=== PATIENT | female | born 1995 | race American Indian/Alaskan Native ===

== ENCOUNTER 2020-06-08 21:31 | Inpatient (IN) | payer MEDICAID ==
[2020-06-08] MEDS ORDERED: LIDOCAINE (2%) 20 MG/1 ML VIAL 20 ML MDV INFILTRATI ONE (23:43)
[2020-06-08] MEDS ORDERED: ePHEDrine SULFATE 50 MG/1 ML INJ IV PRN (23:43)
[2020-06-08] MEDS ORDERED: MINERAL OIL 30 ML ORAL LIQD PO PRN (23:43)
[2020-06-08] MEDS ORDERED: OXYTOCIN DRIP 30 UNITS/500 ML BAG IV SCH (23:45)
[2020-06-08] MEDS ORDERED: LACTATED RINGERS 1,000 ML ONE (23:48)
[2020-06-09] MEDS: LACTATED RINGERS 1,000 ML IV SCH ×3 (00:01→22:10)
[2020-06-09 00:21] LABS: Bilirubin,Urine NEG (Negative); Blood,Urine NEG (Negative); Color,Urine Yellow (Yellow); Mucus,Urine FEW /HPF; Protein,Urine <15 mg/dL mg/dL (Negative); Urobilinogen,Urine < 2.0 mg/dL (<2.0)
[2020-06-09 00:23] LABS: Basophils % (Auto) 0.2 % (0.0-1.8); Eosinophils % (Auto) 0.6 % (0.0-4.3); Hematocrit 36.6 % (30.3-42.9); Hemoglobin 12.6 gm/dl (10.1-14.3); Lymphocytes # (Auto) 1.7 K/mm3 (1.2-5.4); Lymphocytes % (Auto) 19.3 % (13.4-35.0); Mean Corpuscular HGB Conc 34 % (30-34); Mean Corpuscular Volume 95 fl (79-97); Monocytes # (Auto) 0.9 K/mm3 (0.0-0.8); Monocytes % (Auto) 10.7 % (0.0-7.3); Platelet Count 185 K/mm3 (140-440); Red Blood Count 3.84 M/mm3 (3.65-5.03); Red Cell Distribution Width 13.8 % (13.2-15.2)
[2020-06-09 01:07] LABS: Alanine Aminotransferase 17 units/L (7-56)
[2020-06-09 01:29] LABS: Uric Acid 5.7 mg/dL (3.5-7.6)
[2020-06-09] MEDS ORDERED: DINOPROSTONE 10 MG VAG SUPP VG ONE (02:49)
--- NOTE | 2020-06-09 11:25 | History and Physical Report ---
History of Present Illness Date of examination: 06/09/20 Date of admission: 06/08/20 21:31 Chief complaint: Induction of labor History of present illness: 24 yo, G1 @ 39 wks, initiated care with [facility] at 17.2 wks gestation. Her has been complicated by late entry to [facility], +GBS status, high anxious moods, polyhydramnios (NEO-28cms), BV/mycoplasma and possible micrognathia (cell free DNA done 05/06/20). She presented to [facility] yesterday for IOL secondary to polydramnios. Reports +FM. Denies any VB or LOF. Labs: A+, antibody negative; PAP smear normal; rubella immune; VDRL non-reactive; urine culture negative; HBsAg negative; HIV negative; varicella immune; HSV-2 negative; GC/Chlamydia/Trich negative; VIt D - 22.0; MSAFP/Multiple markers negative; BUN-5; Cr-0.61; Uric acid - 3.7; LDH-153; ALT-12; AST-20; 1 hr gtt - 107; GBS positive. Past History Past Medical History: other (Vit D defiecinicy) Past Surgical History: no surgical history Family/Genetic History: hypertension Social history: single, full code. denies: smoking, alcohol abuse, prescription drug abuse, IV drug use - Obstetrical History Expected Date of Delivery: 06/16/20 Actual Gestation: 39 Week(s) 0 Day(s) : 1 Para: 0 Hx # Term Pregnancies: 0 Number of Pregnancies: 0 Spontaneous Abortions: 0 Induced : 0 Number of Living Children: 0 Medications and Allergies Allergies Allergy/AdvReac Type Severity Reaction Status Date / Time No Known Allergies Allergy Unverified 06/08/20 22:22 Home Medications Medication Instructions Recorded Confirmed Last Taken Type Labetalol 200mg TAB 200 mg PO BID 06/08/20 06/08/20 06/08/20 18:00 History Vitamin 1 tab PO DAILY 06/08/20 06/08/20 06/08/20 History Active Meds: Active Medications Ephedrine Sulfate (Ephedrine Sulfate) 10 mg IV Q2M PRN PRN Reason: Hypotension Lactated Ringer's (Lactated Ringers) 1,000 mls @ 125 mls/hr IV DIRECT VALERIE Last Admin: 06/09/20 07:16 Dose: 125 mls/hr Documented by: Oxytocin/Sodium Chloride (Pitocin/Ns 30 Unit/500ml) 30 units in 500 mls @ 40 mls/hr IV TITR VALERIE; Protocol Mineral Oil (Mineral Oil) 30 ml PO QHS PRN PRN Reason: Constipation Review of Systems All systems: negative Genitourinary: contractions (irregular) Rectal Exam: deferred - Vital Signs Vital signs: Vital Signs Pulse BP 93 H 128/72 06/08/20 22:17 06/08/20 22:17 Temp Pulse Resp BP Pulse Ox 98.2 F 76 20 131/79 94 06/09/20 07:50 06/09/20 07:11 06/09/20 07:50 06/09/20 07:11 06/09/20 03:46 - Physical Exam Breasts: Positive: deferred Cardiovascular: Regular rate Lungs: Positive: Normal air movement Abdomen: Positive: other (gravid) Genitourinary (Female): Positive: normal external genitalia, normal perenium Uterus: Positive: enlarged (S=D) Extremities: Positive: normal - Obstetrical FHR: category 1 Uterine Contraction Pattern: Irregular Uterine Contraction Intensity: Mild Results Result Diagrams: 06/08/20 23:25 06/08/20 23:25 Abnormal lab results 06/08/20 06/08/20 06/08/20 Range/Units 23:20 23:25 23:25 MCH 33 H (28-32) pg [place] % (Auto) 10.7 H (0.0-7.3) % [place] # (Auto) 0.9 H (0.0-0.8) K/mm3 Creatinine 0.5 L (0.6-1.2) mg/dL Lactate Dehydrogenase 202 H (91-180) units/L U Epithel Cells (Auto) 18.0 H (0-13.0) /HPF All other labs normal. Assessment and Plan - Patient Problems (1) Encounter for induction of labor Current Visit: Yes Status: Acute Plan to address problem: Cervidil remains in place, remove at 1600 Pain meds as desired per order Anticipate (2) Polyhydramnios affecting Current Visit: Yes Status: Acute (3) Positive GBS test Current Visit: Yes Status: Acute
[2020-06-09] MEDS ORDERED: AMPICILLIN/NS 2 GM/100 ML 2 GM/100 ML BAG IV ONE (11:32)
[2020-06-09] MEDS: AMPICILLIN/NS 1 GM/50 ML 1 GM/50 ML BAG IV SCH ×2 (16:40→20:30)
[2020-06-09] MEDS ORDERED: miSOPROStol 25 MCG TAB PO PRN (17:55)
--- NOTE | 2020-06-09 18:00 | Progress Note ---
Assessment and Plan - Patient Problems (1) Encounter for induction of labor Current Visit: Yes Status: Acute Plan to address problem: Cervidil removed around 1600 Cytotec 50mcg po q 4 hr as tolerated x 4 doses Pain meds as desired per order Anticipate (2) Polyhydramnios affecting Current Visit: Yes Status: Acute (3) Positive GBS test Current Visit: Yes Status: Acute Subjective - Subjective Date of service: 06/09/20 Principal diagnosis: IOL Interval history: 24 yo, G1 @ 39 wks, initiated care with [facility] at 17.2 wks gestation. Her has been complicated by late entry to [facility], +GBS status, high anxious moods, polyhydramnios (NEO-28cms), BV/mycoplasma and possible micrognathia (cell free DNA done 05/06/20). She presented to [facility] yesterday for IOL secondary to polydramnios. Reports +FM. Denies any VB or LOF. Labs: A+, antibody negative; PAP smear normal; rubella immune; VDRL non-reactive; urine culture negative; HBsAg negative; HIV negative; varicella immune; HSV-2 negative; GC/Chlamydia/Trich negative; VIt D - 22.0; MSAFP/Multiple markers negative; BUN-5; Cr-0.61; Uric acid - 3.7; LDH-153; ALT-12; AST-20; 1 hr gtt - 107; GBS positive. Patient reports: movement normal, contractions (irregular), no new complaints, no loss of fluid, no vaginal bleeding Objective - Vital Signs Vital Signs: Vital Signs - 12hr 06/09/20 06/09/20 06/09/20 07:11 07:50 12:47 Temperature 98.2 F Pulse Rate 76 83 Respiratory 20 Rate Blood Pressure 131/79 108/64 06/09/20 06/09/20 06/09/20 12:48 16:07 16:08 Temperature 98.0 F 98.5 F Pulse Rate 88 Respiratory 20 20 Rate Blood Pressure 114/72 - Exam Breasts: deferred Cardiovascular: Regular rate Lungs: Normal air movement FHR: category 1 Uterine Contraction Monitor Mode: External Uterine Contraction Pattern: Irregular Uterine Tone Measurement Phase: Resting Uterine Contraction Intensity: Mild - Labs Labs: Abnormal Labs 06/08/20 06/08/20 06/08/20 23:20 23:25 23:25 MCH 33 H [place] % (Auto) 10.7 H [place] # (Auto) 0.9 H Creatinine 0.5 L Lactate Dehydrogenase 202 H U Epithel Cells (Auto) 18.0 H Laboratory Results - last 24 hr 06/08/20 06/08/20 06/08/20 23:20 23:25 23:25 WBC 8.8 RBC 3.84 Hgb 12.6 Hct 36.6 MCV 95 MCH 33 H MCHC 34 RDW 13.8 Plt Count 185 Lymph % (Auto) 19.3 [place] % (Auto) 10.7 H Eos % (Auto) 0.6 Baso % (Auto) 0.2 Lymph # (Auto) 1.7 [place] # (Auto) 0.9 H Eos # (Auto) 0.0 Baso # (Auto) 0.0 Seg Neutrophils % 69.2 Seg Neutrophils # 6.1 Creatinine Estimated GFR Uric Acid AST ALT Lactate Dehydrogenase Urine Color Yellow Urine Turbidity Slightly-cloudy Urine pH 5.0 Ur Specific [place] 1.015 Urine Protein <15 mg/dl Urine Glucose (UA) Neg Urine Ketones Neg Urine Blood Neg Urine Nitrite Neg Urine Bilirubin Neg Urine Urobilinogen < 2.0 Ur Leukocyte Esterase Neg Urine WBC (Auto) 3.0 Urine RBC (Auto) 2.0 U Epithel Cells (Auto) 18.0 H Urine Mucus Few Syphilis IgG Antibody Nonreactive Blood Type Antibody Screen 06/08/20 06/08/20 23:25 23:25 WBC RBC Hgb Hct MCV MCH MCHC RDW Plt Count Lymph % (Auto) [place] % (Auto) Eos % (Auto) Baso % (Auto) Lymph # (Auto) [place] # (Auto) Eos # (Auto) Baso # (Auto) Seg Neutrophils % Seg Neutrophils # Creatinine 0.5 L Estimated GFR > 60 Uric Acid 5.7 AST 30 ALT 17 Lactate Dehydrogenase 202 H Urine Color Urine Turbidity Urine pH Ur Specific [place] Urine Protein Urine Glucose (UA) Urine Ketones Urine Blood Urine Nitrite Urine Bilirubin Urine Urobilinogen Ur Leukocyte Esterase Urine WBC (Auto) Urine RBC (Auto) U Epithel Cells (Auto) Urine Mucus Syphilis IgG Antibody Blood Type A POSITIVE Antibody Screen Negative
[2020-06-10] MEDS: AMPICILLIN/NS 1 GM/50 ML 1 GM/50 ML BAG IV SCH ×6 (00:30→22:57)
[2020-06-10] MEDS ORDERED: OXYTOCIN DRIP 30,000 MILLIUNITS/500 ML BAG IV SCH (04:00)
[2020-06-10] MEDS ORDERED: fentaNYL 100 MCG/2 ML INJ IV PRN (06:25)
[2020-06-10] MEDS: LACTATED RINGERS 1,000 ML IV SCH ×4 (07:06→14:59)
--- NOTE | 2020-06-10 11:55 | Anesthesia Consultation ---
Anesthesia Consult and Med Hx Date of service: 06/10/20 - Airway Anesthetic Teeth Evaluation: Good ROM Head & Neck: Adequate Mental/Hyoid Distance: Adequate Mallampati Class: Class II Intubation Access Assessment: Probably Good - Pre-Operative Health Status ASA Pre-Surgery Classification: ASA3 Proposed Anesthetic Plan: Epidural - Pulmonary Hx Smoking: No Hx Asthma: No Hx Respiratory Symptoms: No SOB: No COPD: No Home Oxygen Therapy: No Hx Pneumonia: No Hx Sleep Apnea: No - Cardiovascular System Hx Hypertension: No Hx Coronary Artery Disease: No Hx Heart Attack/AMI: No Hx Angina: No Hx Percutaneous Transluminal Coronary Angioplasty (PTCA): No Hx Cardia Arrhythmia: No Hx Pacemaker: No Hx Internal Defibrillator: No Hx Valvular Heart Disease: No Hx Heart Murmur: No Hx Peripheral Vascular Disease: No - Central Nervous System Hx Neuromuscular Disorder: No Hx Seizures: No CVA: No Hx Back Pain: No Hx Psychiatric Problems: No - Gastrointestinal Hx Ulcer: No Hx Gastroesophageal Reflux Disease: No - Endocrine Hx Renal Disease: No Hx End Stage Renal Disease: No Hx Cirrhosis: No Hx Liver Disease: No Hx Insulin Dependent Diabetes: No Hx Non-Insulin Dependent Diabetes: No Hx Thyroid Disease: No Hx Hypothyroidism: No Hx Hyperthyroidism: No - Hematic Hx Anemia: No Hx Sickle Cell Disease: No - Other Systems Hx Alcohol Use: Yes (NOT DURING ) Hx Substance Use: No Hx Cancer: No Hx Obesity: Yes
--- NOTE | 2020-06-10 12:39 | Progress Note ---
Assessment and Plan A: IUP @ 39 07/30 Category I Tracing Polyhydramnios Active Labor GBS Positive P: AROM Internals X2 Continue Pitocin Augmentation Continue GBS prophylaxis Prepare for Epidural Anesthesia Subjective - Subjective Date of service: 06/10/20 Principal diagnosis: IOL Patient reports: movement normal, no new complaints, no loss of fluid, no vaginal bleeding Objective - Vital Signs Vital Signs: Vital Signs - 12hr 06/10/20 06/10/20 06/10/20 00:38 00:44 00:49 Temperature Pulse Rate 89 88 85 Respiratory Rate Blood Pressure Blood Pressure [Right] O2 Sat by Pulse 98 98 98 Oximetry 06/10/20 06/10/20 06/10/20 00:54 00:59 01:04 Temperature Pulse Rate 81 81 90 Respiratory Rate Blood Pressure Blood Pressure [Right] O2 Sat by Pulse 97 97 99 Oximetry 06/10/20 06/10/20 06/10/20 01:09 01:14 01:19 Temperature Pulse Rate 98 H 94 H 99 H Respiratory Rate Blood Pressure Blood Pressure [Right] O2 Sat by Pulse 97 98 98 Oximetry 06/10/20 06/10/20 06/10/20 01:30 01:35 01:40 Temperature Pulse Rate 98 H 79 83 Respiratory Rate Blood Pressure Blood Pressure [Right] O2 Sat by Pulse 99 98 98 Oximetry 06/10/20 06/10/20 06/10/20 01:45 01:50 01:55 Temperature Pulse Rate 84 95 H 78 Respiratory Rate Blood Pressure Blood Pressure [Right] O2 Sat by Pulse 97 97 98 Oximetry 06/10/20 06/10/20 06/10/20 02:00 02:05 02:10 Temperature Pulse Rate 84 91 H 93 H Respiratory Rate Blood Pressure Blood Pressure [Right] O2 Sat by Pulse 97 98 97 Oximetry 06/10/20 06/10/20 06/10/20 02:15 02:20 02:25 Temperature Pulse Rate 76 81 84 Respiratory Rate Blood Pressure Blood Pressure [Right] O2 Sat by Pulse 98 99 98 Oximetry 06/10/20 06/10/20 06/10/20 02:30 02:35 02:40 Temperature Pulse Rate 81 95 H 76 Respiratory Rate Blood Pressure Blood Pressure [Right] O2 Sat by Pulse 97 97 98 Oximetry 06/10/20 06/10/20 06/10/20 02:45 02:50 02:55 Temperature Pulse Rate 77 87 85 Respiratory Rate Blood Pressure Blood Pressure [Right] O2 Sat by Pulse 98 98 98 Oximetry 06/10/20 06/10/20 06/10/20 04:00 06:07 06:11 Temperature 98.6 F Pulse Rate 98 H 89 82 Respiratory 18 Rate Blood Pressure 133/88 Blood Pressure 120/74 [Right] O2 Sat by Pulse 98 87 Oximetry 06/10/20 06/10/20 06/10/20 06:12 06:17 06:22 Temperature Pulse Rate 88 107 H 91 H Respiratory Rate Blood Pressure Blood Pressure [Right] O2 Sat by Pulse 98 99 97 Oximetry 06/10/20 06/10/20 06/10/20 06:27 06:32 06:37 Temperature Pulse Rate 106 H 71 90 Respiratory Rate Blood Pressure Blood Pressure [Right] O2 Sat by Pulse 97 97 98 Oximetry 06/10/20 06/10/20 06/10/20 06:42 06:43 06:47 Temperature Pulse Rate 83 73 75 Respiratory Rate Blood Pressure 126/74 Blood Pressure [Right] O2 Sat by Pulse 99 99 Oximetry 06/10/20 06/10/20 06/10/20 06:52 06:57 07:02 Temperature Pulse Rate 75 70 79 Respiratory Rate Blood Pressure Blood Pressure [Right] O2 Sat by Pulse 97 98 99 Oximetry 06/10/20 06/10/20 06/10/20 07:07 07:12 07:17 Temperature Pulse Rate 72 80 79 Respiratory Rate Blood Pressure 114/63 Blood Pressure [Right] O2 Sat by Pulse 93 94 95 Oximetry 06/10/20 06/10/20 06/10/20 07:22 07:27 07:32 Temperature Pulse Rate 83 83 63 Respiratory Rate Blood Pressure Blood Pressure [Right] O2 Sat by Pulse 96 98 97 Oximetry 06/10/20 06/10/20 06/10/20 07:37 07:42 07:43 Temperature Pulse Rate 74 80 99 H Respiratory Rate Blood Pressure 142/89 Blood Pressure [Right] O2 Sat by Pulse 98 98 Oximetry 06/10/20 06/10/20 06/10/20 07:47 07:52 07:56 Temperature Pulse Rate 72 77 72 Respiratory Rate Blood Pressure Blood Pressure [Right] O2 Sat by Pulse 99 99 86 Oximetry 06/10/20 06/10/20 06/10/20 07:57 08:02 08:07 Temperature Pulse Rate 65 98 H 116 H Respiratory Rate Blood Pressure Blood Pressure [Right] O2 Sat by Pulse 99 98 96 Oximetry 06/10/20 06/10/20 06/10/20 08:12 08:17 08:22 Temperature Pulse Rate 69 81 104 H Respiratory Rate Blood Pressure 132/66 Blood Pressure [Right] O2 Sat by Pulse 97 99 95 Oximetry 06/10/20 06/10/20 06/10/20 08:27 08:32 08:37 Temperature Pulse Rate 71 103 H 78 Respiratory Rate Blood Pressure Blood Pressure [Right] O2 Sat by Pulse 99 97 98 Oximetry 06/10/20 06/10/20 06/10/20 08:42 08:43 08:47 Temperature Pulse Rate 83 95 H 67 Respiratory Rate Blood Pressure 134/86 Blood Pressure [Right] O2 Sat by Pulse 98 96 Oximetry 06/10/20 06/10/20 06/10/20 09:59 10:10 10:12 Temperature 98.9 F Pulse Rate 109 H 109 H 75 Respiratory Rate Blood Pressure 123/84 118/71 Blood Pressure [Right] O2 Sat by Pulse Oximetry 06/10/20 06/10/20 06/10/20 10:42 11:28 12:12 Temperature 98.5 F Pulse Rate 78 93 H 105 H Respiratory Rate Blood Pressure 129/61 117/70 133/81 Blood Pressure [Right] O2 Sat by Pulse Oximetry 06/10/20 06/10/20 06/10/20 12:25 12:26 12:29 Temperature Pulse Rate 110 H 97 H 105 H Respiratory Rate Blood Pressure 147/88 150/83 132/87 Blood Pressure [Right] O2 Sat by Pulse 97 Oximetry 06/10/20 06/10/20 06/10/20 12:30 12:31 12:32 Temperature Pulse Rate 99 H 102 H 97 H Respiratory Rate Blood Pressure 114/56 118/63 Blood Pressure [Right] O2 Sat by Pulse 98 Oximetry - Exam Breasts: normal Cardiovascular: Regular rate Lungs: Clear to auscultation, Normal air movement Abdomen: Present: normal appearance, soft Uterus: Present: normal, firm, fundal height above umbilicus FHR: category 1 Uterine Contraction Monitor Mode: Internal Cervical Dilatation: 6 (Copious amount of thin green meconium stained fluids) Cervical Effacement Percentage: 90 station: -2 Uterine Contraction Frequency (min): 5 Uterine Contraction Pattern: Regular Uterine Tone Measurement Phase: Resting Uterine Contraction Intensity: Moderate Extremities: normal - Labs Labs: Abnormal Labs 06/08/20 06/08/20 06/08/20 23:20 23:25 23:25 MCH 33 H [place] % (Auto) 10.7 H [place] # (Auto) 0.9 H Creatinine 0.5 L Lactate Dehydrogenase 202 H U Epithel Cells (Auto) 18.0 H
--- NOTE | 2020-06-10 12:51 | Progress Note ---
Labor Epidural - Labor Epidural Start Time: 12:13 Stop Time: 12:30 Performed by:: ROSELYN KOEHLER Procedure: Called to room 5 to insert a labor epidural. Pt identified and consent signed. Site located (T3/T4) and skin prepped and draped. Timeout performed by RN. Local anesthetic (lidocaine 1% 3ml) to skin. Epidural needle placed and inserted until loss of resistance to air. Epidural cath inserted to 15cm. Negative aspiration for blood/CSF and lidocaine with epi (test dose) placed. No increase in heart rate or BP. Precedex 30mcg injected. Pt states decrease in pain but pressure present. No distress noted.
[2020-06-10] MEDS ORDERED: diphenhydrAMINE 50 MG/ML VIAL IV PRN (12:52)
[2020-06-10] MEDS ORDERED: NALOXONE 2 MG/2 ML INJ IV PRN (12:52)
[2020-06-10] MEDS ORDERED: ONDANSETRON 4 MG/2 ML INJ IV PRN (13:00)
[2020-06-10] MEDS ORDERED: NalbUPHINE 10 MG/1 ML INJ IV PRN (13:00)
[2020-06-10] MEDS: fentaNYL-BUPIV 2 MCG/ML-0.125% 200 MCG/100 ML BAG EPIDURAL SCH ×2 (13:18→21:29)
[2020-06-11] MEDS ORDERED: LIDOCAINE (2%) 20 MG/1 ML VIAL 20 ML MDV INFILTRATI ONE (02:11)
[2020-06-11] MEDS ORDERED: ACETAMINOPHEN 500 MG TAB PO PRN (02:45)
[2020-06-11] MEDS ORDERED: LANOLIN/ZINC/DIMETHICONE (LANSINOH) 7 GM TP PRN (02:54)
[2020-06-11] MEDS ORDERED: MAGNESIUM HYDROXIDE (MOM) ORAL LIQD UDC PO PRN (02:54)
--- NOTE | 2020-06-11 03:09 | Procedure Note ---
OB Delivery Note - Delivery Date of Delivery: 06/11/20 (0145) Surgeon: SOCORRO LEBRON Estimated blood loss: 300cc - Vaginal Delivery presentation: vertex Delivery position: OA Intrapartum events: meconium, other(please specify) (multiple early decels) Delivery induction: cervidil Delivery augmentation: rupture of membranes, pitocin Delivery monitor: internal FHT, internal uterine Route of delivery: Delivery placenta: spontaneous Delivery cord: nuchal cord, 3 umbilical vessels Delivery laceration: 2nd degree Delivery repair: vicryl Anesthesia: epidural Delivery comments: of a live 7'4 male over a 2nd perineal and bilateral vaginal wall lacerations under epidural anesthesia with Apgars of 2 and 8 at 0145 on 06/11/2020. Tight nuchal cord x 1 manually reduced on the perineum prior to delivery of the anterior shoulder. Infant not stimulated, Cord double clamped and cut by GILDARDO Lebron, and passed to awaiting NICU/RESP team due to meconium stained fluids. Spontaneous delivery of placenta complete and intact with Loya side presenting at 0151. Fundus is firm and midline located 5 below the U. Lochia is scant. Vaginal and Perineal lacerations repaired with 2-[address]-1. Placenta to pathology. - A at 1 minute: 2 at 5 minutes: 8 Gender: Male (7'4)
[2020-06-11] MEDS ORDERED: AMMONIA INHALANT IH ONE ×2 (05:35)
[2020-06-11] MEDS: WITCH HAZEL/ GLYCERIN PAD TP PRN (05:50)
[2020-06-11] MEDS: IBUPROFEN 600 MG TAB PO SCH ×3 (05:51→21:50)
--- NOTE | 2020-06-11 10:55 | Post Anesthesia Evaluation ---
- Post Anesthesia Evaluation Patient Participated: Yes Airway Patent: Yes Stable Respiratory Function: Yes Nausea/Vomiting: No Temp > 96.8F: Yes Pain Manageable: Yes Adequeate Hydration: Yes Anesthesia Complications: No Block Receding Appropriately: Yes Patient on Ventilator: No
[2020-06-11 17:32] LABS: Hematocrit 33.7 % (30.3-42.9); Hemoglobin 11.3 gm/dl (10.1-14.3)
[2020-06-11] MEDS: PRENATAL VIT27-FE FUMARATE-FOLIC ACID VIT TAB PO SCH (18:20)
[2020-06-12] MEDS: IBUPROFEN 600 MG TAB PO SCH ×3 (06:35→12:35)
--- NOTE | 2020-06-12 12:00 | Discharge Summary ---
Providers - Providers Date of Admission: 06/08/20 21:31 Date of discharge: 06/13/20 Attending physician: KAMILLA PENA JR, MD Primary care physician: KAMILLA PENA JR, MD Hospitalization Reason for admission: induction of labor Delivery: Episiotomy: none Laceration: 2nd degree (healing as expected) Other procedures: none complications: none Discharge diagnosis: IUP at term delivered baby: male Hospital course: See admission H & P; OB delivery summary and PP progress notes Condition at discharge: Good Disposition: DC-01 TO HOME OR SELFCARE - Discharge Diagnoses (1) Status post normal vaginal delivery Status: Acute Plan - Provider Discharge Summary Activity: routine, no sex for 6 weeks, no heavy lifting 4 weeks, no strenuous exercise Diet: other (Iron rich diet) Instructions: routine Additional instructions: [] Smoking cessation referral if applicable(refer to patient education folder for contact #) [] Refer to [facility] Booklet Call your doctor immediately for: * Fever > 100.5 * Heavy vaginal bleeding ( >1 pad per hour) * Severe persistent headache * Shortness of breath * Reddened, hot, painful area to leg or breast * Drainage or odor from incision. * Keep laceration site clean and dry at all times and follow doctor's instructions regarding bathing/showering - Follow up plan Follow up: KAMILLA PENA JR, MD [Primary Care Provider] - 6 Weeks
[2020-06-12] MEDS: PRENATAL VIT27-FE FUMARATE-FOLIC ACID VIT TAB PO SCH (12:35)
[2020-06-13] MEDS: WITCH HAZEL/ GLYCERIN PAD TP PRN (00:36)
[2020-06-13] MEDS: IBUPROFEN 600 MG TAB PO SCH ×2 (00:39→08:45)
[2020-06-13] MEDS: PRENATAL VIT27-FE FUMARATE-FOLIC ACID VIT TAB PO SCH (10:20)
[2020-06-13 15:20] VITALS: BP 135/82
== END 2020-06-13 15:22 | disposition home or self-care (01) | DRG 775 ==
LOC: LD 21:31 → OB 06-11 05:26
PROVIDERS: ADMIT Obstetrics & Gynecology; ATTEND Obstetrics & Gynecology
PROC: 3E0R3BZ Introduction of Anesthetic Agent into Spinal Canal, Percutaneous Approach (ICD-10-PCS; 2020-06-10)
PROC: 00HU33Z Insertion of Infusion Device into Spinal Canal, Percutaneous Approach (ICD-10-PCS; 2020-06-10)
PROC: 10907ZC Drainage of Amniotic Fluid, Therapeutic from Products of Conception, Via Natural or Artificial Opening (ICD-10-PCS; 2020-06-10)
PROC: 3E0P7VZ Introduction of Hormone into Female Reproductive, Via Natural or Artificial Opening (ICD-10-PCS; principal; 2020-06-11)
PROC: 10E0XZZ Delivery of Products of Conception, External Approach (ICD-10-PCS; 2020-06-11)
PROC: 0KQM0ZZ Repair Perineum Muscle, Open Approach (ICD-10-PCS; 2020-06-11)
DX: O40.3XX0 Polyhydramnios, third trimester, not applicable or unspecified (principal); Z3A.39 39 weeks gestation of pregnancy; Z37.0 Single live birth; Z20.828 Contact with and (suspected) exposure to other viral communicable diseases; O99.824 Streptococcus B carrier state complicating childbirth; O99.284 Endocrine, nutritional and metabolic diseases complicating childbirth; E55.9 Vitamin D deficiency, unspecified; O99.214 Obesity complicating childbirth; E66.9 Obesity, unspecified; O76 Abnormality in fetal heart rate and rhythm complicating labor and delivery; O77.0 Labor and delivery complicated by meconium in amniotic fluid; O70.1 Second degree perineal laceration during delivery; O69.81X0 Labor and delivery complicated by cord around neck, without compression, not applicable or unspecified
CPT/HCPCS: 36415; 59200; 81001; 82565; 83615; 84450; 84460; 84550; 85014; 85018; 85025; 86592; 86850; 86900; 86901; 88307; 96372; G0378; J0290; J2590; J3010; J7120; U0003